=== PATIENT | female | born 1955 | race Caucasian/White ===

== ENCOUNTER 2021-12-22 08:20 | Outpatient (CLI) | payer OTHER, SELFPAY ==
--- NOTE | 2021-12-22 09:00 | CRLHL7_ITS ---
For Patients: As a result of the Century Cures Act, medical imaging exams and procedure reports are released immediately into your electronic medical record. You may view this report before your referring provider. If you have questions, please contact your health care provider. Indication: CHRONIC SINUSITIS Technique: Performed without IV contrast Comparison: None available Findings: There is a heterogeneous densely ossified structure within the left superior ethmoid sinus/inferior left frontal sinus measuring 2.0 cm with surrounding mucosal thickening. The right-sided ethmoid and frontal sinuses are clear. Mild mucosal thickening within both maxillary sinuses with normal patency of the maxillary sinus drainage pathways. Sphenoid sinuses are clear as are the sphenoethmoidal recesses. Normal middle ear cavities and mastoid air cells. Degenerative joint disease at the temporomandibular joints with joint space narrowing, spurring and subchondral cystic change. Mild leftward curvature of the nasal septum without nasal polyps. Impression: 1. 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 2. Mild bilateral maxillary sinus disease. Please note that all CT scans at this facility use dose modulation, iterative reconstruction, and/or weight-based dosing when appropriate to reduce radiation dose to as low as reasonably achievable. Dictated by Darrell Clark MD @ 12/22/2021 9:07:23 AM (Electronically Signed)
--- NOTE | 2021-12-22 10:15 | CRLHL7_ITS ---
For Patients: As a result of the Century Cures Act, medical imaging exams and procedure reports are released immediately into your electronic medical record. You may view this report before your referring provider. If you have questions, please contact your health care provider. Technique: Double-contrast esophagram performed after the uneventful administration of effervescent crystals and thick barium followed by thin barium. Barium tablet also administered. Fluoroscopy time 1 minutes 20 seconds. Indication: Dysphagia Comparison: None. Findings: Postoperative changes cervical spine fusion are present. No hardware complication. No prevertebral soft tissue swelling. Normal motion of the esophagus. Episodes of penetration occurred without aspiration. Gastric band is present in good position. No obstruction to the flow of barium. Barium tablet tolerated normally. No mucosal irregularity. A small amount of reflux is noted. Mild distention of the distal esophagus proximal to the gastric band is likely normal. No significant esophageal dysmotility. Impression: Normal swallowing mechanism with the exception of mild laryngeal penetration without aspiration. No postoperative complication regarding the cervical spine fusion. Good position of the gastric band without obstruction. Dictated by Darrell Clark MD @ 12/22/2021 9:32:21 AM (Electronically Signed)
== END 2021-12-22 08:21 | disposition home or self-care (01) ==
LOC: CT 08:23
PROVIDERS: PCP Emergency Medicine; Visit Provider Otolaryngology
DX: J32.9 Chronic sinusitis, unspecified (principal); J32.0 Chronic maxillary sinusitis; R51.9 Headache, unspecified; R13.10 Dysphagia, unspecified
CPT/HCPCS: 70486; 74221

== ENCOUNTER 2022-01-26 08:09 | Outpatient (CLI) | payer MEDICARE, SELFPAY ==
[2022-01-26 12:43] LABS: Cholesterol* 158 mg/dL (90-199); HDL Cholesterol* 68 mg/dL (>=50); LDL Cholesterol Calculated 67 mg/dL (<100); Triglycerides* 113 mg/dL (40-149)
== END 2022-01-26 08:10 | disposition home or self-care (01) ==
LOC: LKVREF 08:09
PROVIDERS: PCP Emergency Medicine; Visit Provider Emergency Medicine
DX: E78.5 Hyperlipidemia, unspecified (principal)
CPT/HCPCS: 80061

== ENCOUNTER 2022-02-22 09:55 | Outpatient (CLI) | payer OTHER, SELFPAY ==
[2022-02-22 14:28] LABS: Chloride* 106 mmol/L (96-114); Sodium* 142 mmol/L (135-149)
[2022-02-22 14:31] LABS: Blood Urea Nitrogen* 22 mg/dL (7-30); Carbon Dioxide* 24 mmol/L (20-32); Creatinine* 1.6 mg/dL (0.5-1.5); Estimated Glomerular Filt Rate 35 ml/min
[2022-02-22 14:32] LABS: Calcium* 9.6 mg/dL (8.4-10.6); Glucose* 131 mg/dL (60-115)
[2022-02-22 14:47] LABS: Creatinine Urine 151.6 mg/dL
[2022-02-22 14:49] LABS: Microalbumin Creatinine Ratio 10 mg/g (0-30); Microalbumin Urine 3 mg/dL
== END 2022-02-22 09:56 | disposition home or self-care (01) ==
PROVIDERS: PCP Emergency Medicine; Visit Provider Emergency Medicine
DX: Z01.419 Encounter for gynecological examination (general) (routine) without abnormal findings (principal); R63.4 Abnormal weight loss; N18.30 Chronic kidney disease, stage 3 unspecified; E11.9 Type 2 diabetes mellitus without complications; E78.5 Hyperlipidemia, unspecified; F41.8 Other specified anxiety disorders
CPT/HCPCS: 80048; 82043; 82570; 84443

== ENCOUNTER 2022-07-31 16:55 | Outpatient (CLI) | payer OTHER, SELFPAY | END 2022-07-31 16:56 | disposition home or self-care (01) | LOC: NFLDREF 08-02 02:52 | PROVIDERS: PCP Emergency Medicine; Visit Provider Emergency Medicine | DX: R10.9 Unspecified abdominal pain (principal); R10.30 Lower abdominal pain, unspecified; N12 Tubulo-interstitial nephritis, not specified as acute or chronic; N18.9 Chronic kidney disease, unspecified; R50.2 Drug induced fever | CPT/HCPCS: 87086; 87186 ==

== ENCOUNTER 2022-10-31 08:45 | Outpatient (CLI) | payer MEDICARE, SELFPAY | END 2022-10-31 08:46 | disposition home or self-care (01) | PROVIDERS: PCP Emergency Medicine; Visit Provider Emergency Medicine | DX: Z00.00 Encounter for general adult medical examination without abnormal findings (principal); E11.9 Type 2 diabetes mellitus without complications; N18.30 Chronic kidney disease, stage 3 unspecified; E78.5 Hyperlipidemia, unspecified; R73.03 Prediabetes; G25.81 Restless legs syndrome; R00.2 Palpitations | CPT/HCPCS: 80053; 80061; 82607; 82728; 84443 ==

== ENCOUNTER 2023-03-20 13:43 | Outpatient (CLI) | payer MEDICARE, SELFPAY ==
--- NOTE | 2023-03-20 14:30 | CRLHL7_ITS ---
For Patients: As a result of the Century Cures Act, medical imaging exams and procedure reports are released immediately into your electronic medical record. You may view this report before your referring provider. If you have questions, please contact your health care provider. DXA BONE MINERAL DENSITY STUDY, 03/20/2023 Reason for exam: Screening. Current height (inches): 64.0 Weight (lbs.): 145.0 Menopause age: 44 Ethnicity: White 1. Have you had a previous hip or vertebral fracture? No. 2. Have you had any fractures during your adult life which did not result from significant trauma (e.g., auto accident)? No. 3. Did either of your parents have a hip fracture? No. 4. Do you smoke? No. 5. Have you ever taken Glucocorticoids? No. 6. Do you have rheumatoid arthritis? No. 7. Do you have secondary osteoporosis? No. 8. Do you drink 3 or more alcoholic drinks per day? No. 9. Are you being treated for osteoporosis? No. 10. Have you ever taken any of the following medications: Actonel, Evista, Fosamax, Miacalcin, Reclast, Boniva, Forteo, HRT (i.e., estrogen/hormone therapy), Protelos, Prolia, Vitamin D, Calcium, other ??? please specify. ANSWER: Yes; vitamin D, calcium, HRT. 11. Do you have any of the following medical conditions: Anorexia or bulimia, asthma or emphysema, end stage renal disease, hyperparathyroidism, any seizure disorders, cancer, inflammatory bowel diseases, hysterectomy, other ??? please specify. ANSWER: Yes; hysterectomy, other. 12. What was your maximum height (inches)? 64. 13. Do you perform weightbearing exercise regularly? No. 14. Do you regularly consume dairy products? No. 15. Do you drink caffeinated beverages? Yes. 16. At what age did your period start? 8. 17. Are you premenopausal? No. 18. How many full-term pregnancies have you had? 3. 19. Have you ever missed your period for more than 6 months in a row (not including or menopause)? No. TECHNIQUE: Bone mineral density study was performed using the [employer]. FINDINGS: The results of the study expressed as bone mineral density (BMD) are as follows: Lumbar Spine L1 to L2, L4: BMD: 1.171 g/cm2. T-score: 1.2. Z-score: 3.2. Neck Left: BMD: 0.863 g/cm2. T-score: 0.1. Z-score: 1.8. Right: BMD: 0.828 g/cm2. T-score: -0.2. Z-score: 1.5. Total Left: BMD: 0.934 g/cm2. T-score: -0.1. Z-score: 1.3. Right: BMD: 0.964 g/cm2. T-score: 0.2. Z-score: 1.6. IMPRESSION: Normal bone density. DARRELL LUTHER M.D. Diagnostic Radiologist [email or web address] Transcribed: 11:[address]/Dictated by: Darrell Luther MD @ 03/21/2023 8:12:00 AM (Electronically Signed)
--- NOTE | 2023-03-20 15:00 | CRLHL7_ITS ---
For Patients: As a result of the Century Cures Act, medical imaging exams and procedure reports are released immediately into your electronic medical record. You may view this report before your referring provider. If you have questions, please contact your health care provider. BILATERAL SCREENING MAMMOGRAM WITH COMPUTER-AIDED DETECTION AND TOMOSYNTHESIS TECHNIQUE: CC and MLO views were obtained. These mammographic images have been obtained using full-field digital technique. These mammographic images were interpreted with the benefit of computer-aided detection. Breast Tomosynthesis was used in this interpretation. COMPARISON FILM: 07/24/21. FINDINGS: There are scattered areas of fibroglandular density IMPRESSION: There is no radiographic evidence for malignancy. ASSESSMENT: BI-RADS Category 1: Negative RECOMMENDATION: Routine screening mammogram in 1 year. A lay language report of this examination will be provided to the patient. Darrell Clark M.D. Diagnostic Radiologist [email or web address] MARIANA/Dictated by: Darrell Clark MD @ 03/21/2023 11:53:00 AM (Electronically Signed)
== END 2023-03-20 13:44 | disposition home or self-care (01) ==
LOC: RAD 13:44
PROVIDERS: PCP Emergency Medicine; Visit Provider Emergency Medicine
DX: Z12.31 Encounter for screening mammogram for malignant neoplasm of breast (principal); Z13.820 Encounter for screening for osteoporosis
CPT/HCPCS: 77063; 77067; 77080

== ENCOUNTER 2023-05-07 12:43 | Outpatient (CLI) | payer MEDICARE, SELFPAY | END 2023-05-07 12:44 | disposition home or self-care (01) | PROVIDERS: PCP Emergency Medicine; Visit Provider Emergency Medicine | DX: E11.9 Type 2 diabetes mellitus without complications (principal); R63.4 Abnormal weight loss; E78.5 Hyperlipidemia, unspecified; N18.9 Chronic kidney disease, unspecified; R73.03 Prediabetes | CPT/HCPCS: 80048; 80061; 82043; 82570 ==

== ENCOUNTER 2023-12-27 13:00 | Emergency (ER) | payer OTHER, SELFPAY ==
[2023-12-27 13:48] VITALS: BP 110/75; PULSE 104; RESP 20; TEMP 37.1; O2SAT 97; BMI 24.9
--- NOTE | 2023-12-27 14:43 | CRLHL7_ITS ---
For Patients: As a result of the Century Cures Act, medical imaging exams and procedure reports are released immediately into your electronic medical record. You may view this report before your referring provider. If you have questions, please contact your health care provider. Indication: CONSTIPATION AND RUQ TENDERNESS Technique: CT abdomen/pelvis without IV contrast Comparison: None Findings: Lower thorax: Mild dependent and bibasilar atelectatic changes. Abdomen/pelvis: The liver, gallbladder and biliary system, spleen, pancreas, adrenal glands, kidneys, ureters, and bladder are unremarkable in appearance. Gastric lap band appears appropriately positioned. There is no evidence of bowel obstruction or inflammation. The appendix is normal. Colonic diverticulosis without CT evidence of acute diverticulitis. Moderate to large volume stool burden throughout the colon. No free fluid or free air. No abdominopelvic lymphadenopathy. No abdominal aortic aneurysm. Moderate calcific atherosclerosis of the aortoiliac system. Soft tissue/musculoskeletal: No acute findings. There are some degenerative changes of the spine and bilateral sacroiliac joints. No suspicious osseous lesions. Impression: 1. No CT evidence of an acute process involving the abdomen or pelvis. 2. Incidental findings as detailed above. Please note that all CT scans at this facility use dose modulation, iterative reconstruction, and/or weight-based dosing when appropriate to reduce radiation dose to as low as reasonably achievable. Dictated by Sam Sommer MD @ 12/27/2023 4:20:15 PM (Electronically Signed)
[2023-12-27 15:18] LABS: Basophils Absolute Auto 0.02 K/uL (0.00-0.30); Basophils Percent Auto 0.2 % (0.0-3.0); Eosinophils Absolute Auto 0.52 K/uL (0.00-0.50); Eosinophils Percent Auto 6.3 % (0.0-7.0); Hemoglobin* 14.5 gm/dL (12.0-16.0); Immature Granulocytes Abs Auto 0.01 K/uL (0.00-0.30); Immature Granulocytes Pct Auto 0.1 %; Lymphocytes Absolute Auto 1.93 K/uL (0.90-2.90); Lymphocytes Percent Auto 23.3 % (20-44); Mean Corpuscular HGB Conc 33 gm/dL (32-36); Mean Corpuscular Hemoglobin 29 pg (26-34); Mean Corpuscular Volume 88 fL (80-100); Monocytes Percent Auto 9.6 % (0.0-11.0); Neutrophils Absolute Auto 5.02 K/uL (1.7-7.0); Neutrophils Percent Auto 60.5 % (42.0-72.0); Platelet Count* 198 K/uL (140-440); RDW Coefficient of Variation % 12.4 % (11.5-15.5); Red Blood Count 5.01 m/uL (4.00-5.20)
--- NOTE | 2023-12-27 15:25 | ED_ITS ---
HPI - General Adult General Date Seen: 12/27/23 <Jayme Jake Tuan DO - Last Filed: 12/29/23 00:19> Chief complaint: Constipation <Jayme Dickerson DO - Last Filed: 12/29/23 00:19> Stated complaint: constipation, elevated BP <Jayme Dickerson DO - Last Filed: 12/29/23 00:19> Time Seen by Provider: 12/27/23 14:35 <Jayme Jake Tuan DO - Last Filed: 12/29/23 00:19> Source: patient <Jayme Dickerson DO - Last Filed: 12/29/23 00:19> Mode of arrival: ambulatory <Jayme Dickerson - Last Filed: 12/29/23 00:19> Limitations: no limitations <Jayme Dickerson DO - Last Filed: 12/29/23 00:19> History of Present Illness HPI narrative: Patient is a 68-year-old female presenting to emergency department for constipation. She states she has not had a normal bowel movement in several weeks. She initially went to see her primary care provider this past Saturday who did an x-ray does show she is mildly constipated and she was started on MiraLax and enema. She was using the MiraLax and enema and had a very small bowel movement she states and then use the MiraLax again the next day with no bowel movement. She then tried a stool softener which again had a small bowel movement after the 1st use and nothing after the 2nd use. She then started noticing her left lower quadrant abdominal pain moved to her right upper quadrant and her blood pressures were up slightly from normally 120s over 80s to 140s over 90s. She is also concerned she has a history of of lap band surgery. This was done 16 years ago and she has not had any complications with that that she is aware of. No other concerns noted. Denies fevers, chills, dysuria, polyuria, lightheadedness, dizziness, chest pain, shortness of breath, headache, weakness, numbness. <Jayme Dickerson DO - Last Filed: 12/29/23 00:19> Related Data Home medications: Home Medications ?Medication ?Instructions ?Recorded ?Confirmed buspirone 10 mg tablet 10 mg PO DAILY 12/12/21 12/27/23 fexofenadine 180 mg tablet 180 mg PO .Daily as needed PRN 12/12/21 12/27/23 fluvoxamine 50 mg tablet 50 - 75 mg PO BID 10/31/22 12/27/23 zolpidem 5 mg tablet 5 mg PO QHS 10/31/22 12/27/23 oxymetazoline 0.05 % nasal spray 2 spray intranasal Q12H 08/22/23 12/27/23 (Afrin Sinus (oxymetazoline)) Previous Rx's ?Medication ?Instructions ?Recorded rosuvastatin 20 mg tablet 20 mg PO QDAY #90 tabs 05/13/23 Blood Glucose Meter #1 ea 05/31/23 Diabetic Test Strips #100 ea 05/31/23 lancets #100 ea 05/31/23 metformin 500 mg tablet 1,000 mg (2 x 500 mg) PO BID #360 10/15/23 tabs metformin 500 mg tablet 500 mg PO BID #180 tabs 10/15/23 polyethylene glycol 3350 17 4 g PO QDAY #119 grams 12/17/23 gram/dose oral powder (Miralax) cyclobenzaprine 10 mg tablet 10 mg PO .Bedtime as needed PRN 12/20/23 muscle spasm #90 tabs <Jayme Dickerson DO - Last Filed: 12/29/23 00:19> Allergies/adverse reactions: Allergies Allergy/AdvReac Type Severity Reaction Status Date / Time ceftriaxone Allergy Intermediate Gave her Verified 12/27/23 13:54 Drug fever codeine Allergy Intermediate Hallucinati Verified 12/27/23 13:54 ng fluticasone Allergy Intermediate Insomnia Verified 12/27/23 13:54 [From Advair Diskus] salmeterol Allergy Intermediate Insomnia Verified 12/27/23 13:54 [From Advair Diskus] tramadol Allergy Intermediate Seizure Verified 12/27/23 13:54 rifampin Allergy Unknown Verified 12/27/23 13:54 <Jayme Dickerson DO - Last Filed: 12/29/23 00:19> Review of Systems Status of ROS: Reports: 10 or more systems reviewed and unremarkable except as noted in History and below <Jayme Dickerson DO - Last Filed: 12/29/23 00:19> [facility] Medical History: Medical History UTI (urinary tract infection) ?N39.0 - Urinary tract infection, site not specified (ICD-10) Sinusitis ?J32.9 - Chronic sinusitis, unspecified (ICD-10) Low ferritin ?R79.0 - Abnormal level of blood mineral (ICD-10) Dyspnea on exertion ?R06.09 - Other forms of dyspnea (ICD-10) Type 2 diabetes mellitus ?E11.9 - Type 2 diabetes mellitus without complications (ICD-10) Restless leg syndrome ?G25.81 - Restless legs syndrome (ICD-10) Screening for osteoporosis ?Z13.820 - Encounter for screening for osteoporosis (ICD-10) Screening for breast cancer ?Z12.39 - Encounter for other screening for malignant neoplasm of breast (ICD-10) Neuropathy ?G62.9 - Polyneuropathy, unspecified (ICD-10) Palpitation ?R00.2 - Palpitations (ICD-10) Drug induced fever ?R50.2 - Drug induced fever (ICD-10) Pyelonephritis ?N12 - Tubulo-interstitial nephritis, not specified as acute or chronic (ICD- 10) Groin pain ?R10.30 - Lower abdominal pain, unspecified (ICD-10) Flank pain ?R10.9 - Unspecified abdominal pain (ICD-10) Kidney stone ?N20.0 - Calculus of kidney (ICD-10) COVID-19 ?U07.1 - COVID-19 (ICD-10) Weight loss ?R63.4 - Abnormal weight loss (ICD-10) Diabetes mellitus type 2, controlled, without complications ?E11.9 - Type 2 diabetes mellitus without complications (ICD-10) Chronic kidney disease, stage 3 ?N18.30 - Chronic kidney disease, stage 3 unspecified (ICD-10) History of being hospitalized ?Z92.89 - Personal history of other medical treatment (ICD-10) Encounter for screening for severe acute respiratory syndrome coronavirus 2 (SARS-CoV-2) infection ?Z11.52 - Encounter for screening for COVID-19 (ICD-10) Encounter for screening for malignant neoplasm of colon ?Z12.11 - Encounter for screening for malignant neoplasm of colon (ICD-10) <Jayme Dickerson DO - Last Filed: 08/25/24 00:19> Surgical History: Surgical History History of bladder surgery ?Z98.890 - Other specified postprocedural states (ICD-10) History of fusion of cervical spine ?Z98.1 - Arthrodesis status (ICD-10) History of total left knee replacement ?Z96.652 - Presence of left artificial knee joint (ICD-10) History of incision and drainage ?Z98.890 - Other specified postprocedural states (ICD-10) History of total left knee replacement (09/2011) ?Z96.652 - Presence of left artificial knee joint (ICD-10) H/O bariatric surgery ?Z98.84 - Bariatric surgery status (ICD-10) Status post total abdominal hysterectomy and bilateral salpingo-oophorectomy ?Z90.710 - Acquired absence of both cervix and uterus (ICD-10) ?Z90.722 - Acquired absence of ovaries, bilateral (ICD-10) ?Z90.79 - Acquired absence of other genital organ(s) (ICD-10) History of laparoscopic adjustable gastric banding ?Z98.84 - Bariatric surgery status (ICD-10) <Jayme Dickerson DO - Last Filed: 12/29/23 00:19> Family History: Family History Daughter DVT (deep venous thrombosis) Daughter DVT (deep venous thrombosis) <Jayme Dickerson DO - Last Filed: 12/29/23 00:19> Social History: Social History Narrative: former smoker-Quit 1984 Smoking Status: Former smoker What tobacco products do you use: cigarettes Smoking quit date/years: >15 years ago Do you use any of these nicotine containing products: None Second hand tobacco smoke exposure: No Little interest or pleasure in doing things: more than half the days Feeling down, depressed, or hopeless: more than half the days <Jayme Dickerson DO - Last Filed: 12/29/23 00:19> Exam Narrative: Exam Narrative: Const: Well-nourished, Well-developed, in mild distress Eyes: PERRL, no conjunctival injection, and symmetrical lids HENT: Atraumatic external nose and ears. Moist mucous membranes. Neck: Symmetric, trachea midline, No thyromegaly. CVS: RRR, No murmurs or gallops. Peripheral pulses 2+ and equal in all extremities RESP: Unlabored respiratory effort. Clear to auscultation bilaterally. GI: Mild tenderness to right upper quadrant, Nondistended, No rebound or guar ding. MSK:Extremities w/o deformity, Normal Active ROM Skin: Warm, Dry. No rashes or lesions. Neuro: Normal Muscle tone, No focal neurological deficits. Psych: Awake, Alert, & Oriented x3. Appropriate mood and affect. <Jayme Dickerson DO - Last Filed: 12/29/23 00:19> Const: Vital Signs, click to edit/add: Vital Signs - 24 hr 12/27/23 13:48 Temperature 98.7 F Pulse Rate [Pulse Oximeter] 104 H Respiratory Rate 20 Blood Pressure [Ri ght Upper Arm] 110/75 Pulse Oximetry 97 Oxygen Delivery Me thod Room Air <Jayme Dickerson DO - Last Filed: 12/29/23 00:19> Vital Signs, click to edit/add: Vital Signs - 24 hr 12/27/23 13:48 Temperature 98.7 F Pulse Rate [Pulse Oximeter] 104 H Respiratory Rate 20 Blood Pressure [Ri ght Upper Arm] 110/75 Pulse Oximetry 97 Oxygen Delivery Me thod Room Air <Aleksander Penny MD - Last Filed: 12/27/23 16:53> Course Vital Signs Vital signs: Initial Vital Signs Temperature 98.7 F 12/27/23 13:48 Temperature Source Temporal Artery Scan 12/27/23 13:48 Pulse Rate 104 H 12/27/23 13:48 Respiratory Rate 20 12/27/23 13:48 Blood Pressure 110/75 12/27/23 13:48 Blood Pressure Mean 86 12/27/23 13:48 Blood Pressure Position Sitting 12/27/23 13:48 Pulse Oximetry 97 12/27/23 13:48 Oxygen Delivery Method Room Air 12/27/23 13:48 Vital Signs Temperature 98.7 F 12/27/23 13:48 Pulse Rate 104 H 12/27/23 13:48 Respiratory Rate 20 12/27/23 13:48 Blood Pressure 110/75 12/27/23 13:48 Pulse Oximetry 97 12/27/23 13:48 Oxygen Delivery Method Room Air 12/27/23 13:48 Temperature 98.7 F 12/27/23 13:48 Pulse Rate 82 12/27/23 17:08 Respiratory Rate 16 12/27/23 17:08 Blood Pressure 132/106 H 12/27/23 17:08 Pulse Oximetry 97 12/27/23 13:48 Oxygen Delivery Method Room Air 12/27/23 13:48 <Jayme Dickerson DO - Last Filed: 12/29/23 00:19> Initial Vital Signs Temperature 98.7 F 12/27/23 13:48 Temperature Source Temporal Artery Scan 12/27/23 13:48 Pulse Rate 104 H 12/27/23 13:48 Respiratory Rate 20 12/27/23 13:48 Blood Pressure 110/75 12/27/23 13:48 Blood Pressure Mean 86 12/27/23 13:48 Blood Pressure Position Sitting 12/27/23 13:48 Pulse Oximetry 97 12/27/23 13:48 Oxygen Delivery Method Room Air 12/27/23 13:48 Vital Signs Temperature 98.7 F 12/27/23 13:48 Pulse Rate 104 H 12/27/23 13:48 Respiratory Rate 20 12/27/23 13:48 Blood Pressure 110/75 12/27/23 13:48 Pulse Oximetry 97 12/27/23 13:48 Oxygen Delivery Method Room Air 12/27/23 13:48 Temperature 98.7 F 12/27/23 13:48 Pulse Rate 82 12/27/23 17:08 Respiratory Rate 16 12/27/23 17:08 Blood Pressure 132/106 H 12/27/23 17:08 Pulse Oximetry 97 12/27/23 13:48 Oxygen Delivery Method Room Air 12/27/23 13:48 <Aleksander Penny MD - Last Filed: 12/27/23 16:53> Medical Decision Making MDM Narrative Medical decision making narrative: Patient is a 68-year-old female presenting to emergency department for constipation. She does have some mild right upper quadrant tenderness I do consider any gallbladder abnormalities. This seems less likely though because she states just a few days ago her pain was on the left lower quadrant she had no pain in the right upper quadrant. Will do CT scan though to look for constipation and other intra-abdominal abnormalities. Is not needing anything for pain or nausea at this time. She does seem anxious. Will also order CBC, CMP, magnesium. lab work shows no concerning abnormalities other than an elevated creatinine. This is only slightly higher than her normal but does not lower to get a CT scan with IV contrast at this time. Switched to non con. Patient signed out to my Colleague Dr. Penny pending CT scan. <Jayme Dickerson DO - Last Filed: 12/29/23 00:19> Lab Data Labs: Lab Results 12/27/23 Range/Units 15:00 WBC 8.30 (4.50-11.00) K/uL RBC 5.01 (4.00-5.20) m/uL Hgb 14.5 (12.0-16.0) gm/dL Hct 44.0 (33.0-51.0) % MCV 88 (80-100) fL MCH 29 (26-34) pg MCHC 33 (32-36) gm/dL RDW Coeff of Rebeca 12.4 (11.5-15.5) % Plt Count 198 (140-440) K/uL Neut % (Auto) 60.5 (42.0-72.0) % Lymph % (Auto) 23.3 (20-44) % [place] % (Auto) 9.6 (0.0-11.0) % Eos % (Auto) 6.3 (0.0-7.0) % Baso % (Auto) 0.2 (0.0-3.0) % Neut # (Auto) 5.02 (1.7-7.0) K/uL Lymph # (Auto) 1.93 (0.90-2.90) K/uL [place] # (Auto) 0.80 (0.00-0.90) K/UL Eos # (Auto) 0.52 H (0.00-0.50) K/uL Baso # (Auto) 0.02 (0.00-0.30) K/uL Abs Immat Gran (auto) 0.01 (0.00-0.30) K/uL Imm/Tot Granulo (auto) 0.1 % Sodium 138 (135-149) mmol/L Potassium 3.7 (3.6-5.1) mmol/L Chloride 108 (96-114) mmol/L Carbon Dioxide 21 (20-32) mmol/L Anion Gap 9 (7-15) mEq/L BUN 21 (7-30) mg/dL Creatinine 1.8 H (0.5-1.5) mg/dL Estimated Creat Clear 25.47 Estimated GFR 30 ml/min Glucose 127 H (60-115) mg/dL Calcium 9.6 (8.4-10.6) mg/dL Magnesium 2.4 (1.5-2.6) mg/dL Total Bilirubin 0.5 (0.1-1.5) mg/dL AST 19 (12-35) U/L ALT 12 (4-35) U/L Alkaline Phosphatase 84 (40-150) U/L Total Protein 7.3 (6.0-8.3) g/dL Albumin 4.6 (3.3-5.0) g/dL POC Creatinine 1.9 H (0.6-1.3) mg/dl <Jayme Dickerson, DO - Last Filed: 12/29/23 00:19> Lab Results 12/27/23 Range/Units 15:00 WBC 8.30 (4.50-11.00) K/uL RBC 5.01 (4.00-5.20) m/uL Hgb 14.5 (12.0-16.0) gm/dL Hct 44.0 (33.0-51.0) % MCV 88 (80-100) fL MCH 29 (26-34) pg MCHC 33 (32-36) gm/dL RDW Coeff of Rebeca 12.4 (11.5-15.5) % Plt Count 198 (140-440) K/uL Neut % (Auto) 60.5 (42.0-72.0) % Lymph % (Auto) 23.3 (20-44) % [place] % (Auto) 9.6 (0.0-11.0) % Eos % (Auto) 6.3 (0.0-7.0) % Baso % (Auto) 0.2 (0.0-3.0) % Neut # (Auto) 5.02 (1.7-7.0) K/uL Lymph # (Auto) 1.93 (0.90-2.90) K/uL [place] # (Auto) 0.80 (0.00-0.90) K/UL Eos # (Auto) 0.52 H (0.00-0.50) K/uL Baso # (Auto) 0.02 (0.00-0.30) K/uL Abs Immat Gran (auto) 0.01 (0.00-0.30) K/uL Imm/Tot Granulo (auto) 0.1 % Sodium 138 (135-149) mmol/L Potassium 3.7 (3.6-5.1) mmol/L Chloride 108 (96-114) mmol/L Carbon Dioxide 21 (20-32) mmol/L Anion Gap 9 (7-15) mEq/L BUN 21 (7-30) mg/dL Creatinine 1.8 H (0.5-1.5) mg/dL Estimated Creat Clear 25.47 Estimated GFR 30 ml/min Glucose 127 H (60-115) mg/dL Calcium 9.6 (8.4-10.6) mg/dL Magnesium 2.4 (1.5-2.6) mg/dL Total Bilirubin 0.5 (0.1-1.5) mg/dL AST 19 (12-35) U/L ALT 12 (4-35) U/L Alkaline Phosphatase 84 (40-150) U/L Total Protein 7.3 (6.0-8.3) g/dL Albumin 4.6 (3.3-5.0) g/dL POC Creatinine 1.9 H (0.6-1.3) mg/dl <Aleksander Penny MD - Last Filed: 12/27/23 16:53> Imaging Data CT scan - abdomen: Radiologist's impression: 1. No CT evidence of an acute process involving the abdomen or pelvis. 2. Incidental findings as detailed above. <Aleksander Penny MD - Last Filed: 12/27/23 16:53> Discharge Plan Discharge Clinical Impression: Constipation Qualifiers: Constipation type: unspecified constipation type Qualified Code(s): K59.00 - Constipation, unspecified <Jayme Dickerson DO - Last Filed: 12/29/23 00:19> Patient Disposition: Home, Self-Care <Jayme Dickerson DO - Last Filed: 12/29/23 00:19> Condition: Stable <Jayme Dickerson DO - Last Filed: 12/29/23 00:19> Instructions: Constipation (ED) <Jayme Dickerson DO - Last Filed: 12/29/23 00:19> Additional Instructions: If you continue to have issues with constipation follow the following directions. ?2 - Bisacodyl tablets (Dulcolax? laxative NOT Dulcolax? stool softener) each tablet contains 5 mg of bisacodyl ?1 - 8.3 ounce bottle of Polyethylene Glycol (PEG) 3350 Powder (MiraLAX, SmoothLAX, ClearLAX or generic equivalent) 64 oz. Gatorade? (No red colored flavors) Regular Gatorade?, Gatorade G2?, Powerade?, Powerade Zero?, Pedialyte or Propel?, Liquid IV, and other electrolyte beverages are acceptable. Red flavors are not allowed; all other colors (yellow, green, orange, purple, blue) are okay. It is also okay to buy two 2.12 oz packets of powdered Gatorade that can be mixed with water to a total volume of 64 oz of liquid. ?1 - 10 oz. bottle Magnesium Citrate (No red colored flavors) It is also okay for you to use a 0.5 ounce package of powdered magnesium citrate (17 grams) mixed with 10 ounces of water. ?Tomorrow begin Clear Liquid Diet (clear liquids include things you can see through). Examples of a clear liquid diet include: water, clear broth or bouillon (gluten free options available), Gatorade, Pedialyte or Powerade, carbonated and non-carbonated soft drinks (Sprite, 7-Up, Gingerale), strained fruit juices without pulp (apple, white grape, white cranberry), Jell-O, popsic les, and up to one cup of black coffee or tea (no milk or cream) each day. The following are not allowed on a clear liquid diet: red liquids, alcoholic beverages, dairy products, protein shakes, cream broths, juice with pulp, products containing oil and chewing tobacco. For additional details on following a clear liquid diet, please see [email or web address] ?Take 2 Bisacodyl (Dulcolax) tablets ?4-6 hour later Drink Miralax ? Gatorade preparation Mix 1 bottle of Miralax with 64 oz. of Gatorade in a large pitcher. Drink 1 - 8 oz. glass of the Miralax/Gatorade solution. Continue drinking 1 - 8 oz. glass every 15 minutes thereafter until the mixture is gone <Jayme Dickerson DO - Last Filed: 12/29/23 00:19> Prescriptions: No Action fluvoxamine 50 mg tablet 50 - 75 mg PO BID Rx Instructions: take one tab 50 mg in am, take 1 1/2 tab 75 mg in the pm zolpidem 5 mg tablet 5 mg PO QHS polyethylene glycol 3350 [Miralax] 17 gram/dose powder 4 g PO QDAY Qty: 119 0RF buspirone 10 mg tablet 10 mg PO DAILY fexofenadine 180 mg tablet 180 mg PO .Daily as needed PRN oxymetazoline [Afrin Sinus (oxymetazoline)] 0.05 % spray,non-aerosol 2 spray intranasal Q12H rosuvastatin 20 mg tablet 20 mg PO QDAY Qty: 90 3RF (DME) Blood Glucose Meter Misc See Rx Instructions .Route Qty: 1 0RF Rx Instructions: As directed (DME) Diabetic Test Strips Misc See Rx Instructions .Route Qty: 100 1RF Rx Instructions: Check glucose twice daily (DME) lancets Misc See Rx Instructions .Route Qty: 100 1RF Rx Instructions: As directed metformin 500 mg tablet 1,000 mg PO BID Qty: 360 1RF metformin 500 mg tablet 500 mg PO BID Qty: 180 0RF cyclobenzaprine 10 mg tablet 10 mg PO .Bedtime as needed PRN (Reason: muscle spasm) Qty: 90 0RF <Jayme Dickerson DO - Last Filed: 12/29/23 00:19> Follow Up/Referrals: Alexia Martinez MD [Primary Care Provider] - <Jayme Dickerson DO - Last Filed: 12/29/23 00:19> Stand Alone Forms: MyHealth Info Instructions <Jayme Dickerson DO - Last Filed: 12/29/23 00:19>
[2023-12-27 15:35] LABS: Slide Review Reflex No
[2023-12-27 15:36] LABS: Albumin* 4.6 g/dL (3.3-5.0); Chloride* 108 mmol/L (96-114); Sodium* 138 mmol/L (135-149)
[2023-12-27 15:37] LABS: Potassium* 3.7 mmol/L (3.6-5.1)
[2023-12-27 15:38] LABS: Creatinine* 1.8 mg/dL (0.5-1.5); Est. Creatinine Clearance* 25.47; Estimated Glomerular Filt Rate 30 ml/min
[2023-12-27 15:39] LABS: Alanine Aminotransferase* 12 U/L (4-35); Alkaline Phosphatase* 84 U/L (40-150); Anion Gap 9 mEq/L (7-15); Aspartate Amino Transferase* 19 U/L (12-35); Bilirubin Total* 0.5 mg/dL (0.1-1.5); Blood Urea Nitrogen* 21 mg/dL (7-30); Carbon Dioxide* 21 mmol/L (20-32); Glucose* 127 mg/dL (60-115); Total Protein* 7.3 g/dL (6.0-8.3)
[2023-12-27 15:40] LABS: Calcium* 9.6 mg/dL (8.4-10.6); Magnesium* 2.4 mg/dL (1.5-2.6)
[2023-12-27 15:53] LABS: Creatinine Point of Care* 1.9 mg/dl (0.6-1.3)
[2023-12-27 17:08] VITALS: BP 132/106; PULSE 82; RESP 16
== END 2023-12-27 17:10 | disposition home or self-care (01) ==
PROVIDERS: Emergency Provider Student in an Organized Health Care Education/Training Program; PCP Emergency Medicine
DX: K59.00 Constipation, unspecified (principal)
CPT/HCPCS: 36415; 74176; 80053; 82565; 83735; 85025; 99283

== ENCOUNTER 2024-01-01 09:17 | Outpatient (CLI) | payer OTHER, SELFPAY | END 2024-01-01 09:18 | disposition home or self-care (01) | PROVIDERS: PCP Emergency Medicine; Visit Provider Emergency Medicine | DX: E11.9 Type 2 diabetes mellitus without complications (principal); N18.31 Chronic kidney disease, stage 3a; K59.00 Constipation, unspecified | CPT/HCPCS: 80048; 84443 ==

== ENCOUNTER 2024-02-11 15:59 | Outpatient (CLI) | payer OTHER, SELFPAY | END 2024-02-11 16:00 | disposition home or self-care (01) | PROVIDERS: PCP Emergency Medicine; Visit Provider Internal Medicine Nephrology | DX: N18.31 Chronic kidney disease, stage 3a (principal); R82.90 Unspecified abnormal findings in urine | CPT/HCPCS: 80069; 82043; 82570; 87086; 87186; 87205 ==

== ENCOUNTER 2024-02-13 10:00 | Outpatient (CLI) | payer OTHER, SELFPAY | END 2024-02-13 10:01 | disposition home or self-care (01) | LOC: NFLDREF 02-14 09:20 | PROVIDERS: PCP Emergency Medicine; Referring Provider Emergency Medicine; Visit Provider Internal Medicine Nephrology | DX: N18.31 Chronic kidney disease, stage 3a (principal) | CPT/HCPCS: 82043; 82570 ==

== ENCOUNTER 2024-05-13 09:15 | Outpatient (CLI) | payer OTHER, SELFPAY | END 2024-05-13 09:16 | disposition home or self-care (01) | LOC: NFLDREF 05-20 02:25 | PROVIDERS: PCP Emergency Medicine; Referring Provider Emergency Medicine; Visit Provider Internal Medicine Nephrology | DX: N18.4 Chronic kidney disease, stage 4 (severe) (principal); N39.0 Urinary tract infection, site not specified | CPT/HCPCS: 80069; 82043; 82570; 87086 ==

== ENCOUNTER 2024-08-20 08:53 | Outpatient (CLI) | payer OTHER, SELFPAY | END 2024-08-20 08:54 | disposition home or self-care (01) | LOC: NFLDREF 08-23 13:57 | PROVIDERS: PCP Emergency Medicine; Referring Provider Emergency Medicine; Visit Provider Internal Medicine Nephrology | DX: E11.22 Type 2 diabetes mellitus with diabetic chronic kidney disease (principal); N18.4 Chronic kidney disease, stage 4 (severe); Z79.4 Long term (current) use of insulin; Z79.82 Long term (current) use of aspirin; Z79.84 Long term (current) use of oral hypoglycemic drugs; R79.0 Abnormal level of blood mineral; G25.81 Restless legs syndrome; Z98.84 Bariatric surgery status; R63.4 Abnormal weight loss; E78.5 Hyperlipidemia, unspecified; Z86.73 Personal history of transient ischemic attack (TIA), and cerebral infarction without residual deficits; G47.33 Obstructive sleep apnea (adult) (pediatric) | CPT/HCPCS: 80048; 80069; 82043; 82570; 82728; 83540; 83550; 87086 ==

== ENCOUNTER 2024-12-03 13:38 | Outpatient (CLI) | payer OTHER, SELFPAY | END 2024-12-03 13:39 | disposition home or self-care (01) | LOC: NFLDREF 12-07 17:28 | PROVIDERS: PCP Emergency Medicine; Referring Provider Emergency Medicine; Visit Provider Emergency Medicine | DX: E11.22 Type 2 diabetes mellitus with diabetic chronic kidney disease (principal); N18.31 Chronic kidney disease, stage 3a; E78.2 Mixed hyperlipidemia | CPT/HCPCS: 80048; 80061; 82306 ==

== ENCOUNTER 2025-01-14 09:55 | Outpatient (CLI) | payer OTHER, SELFPAY | END 2025-01-14 09:56 | disposition home or self-care (01) | LOC: NFLDREF 01-19 07:20 | PROVIDERS: PCP Physician Assistant Medical; Referring Provider Emergency Medicine; Visit Provider Physician Assistant Medical | DX: R30.0 Dysuria (principal) | CPT/HCPCS: 87086; 87186 ==

== ENCOUNTER 2025-04-09 10:50 | Outpatient (CLI) | payer OTHER, SELFPAY | END 2025-04-09 10:51 | disposition home or self-care (01) | LOC: NFLDREF 04-14 15:44 | PROVIDERS: PCP Physician Assistant Medical; Referring Provider Physician Assistant Medical; Visit Provider Physician Assistant Medical | DX: E11.22 Type 2 diabetes mellitus with diabetic chronic kidney disease (principal); N18.31 Chronic kidney disease, stage 3a | CPT/HCPCS: 80048; 82043; 82570 ==